=== PATIENT | female | born 1955 | race Caucasian/White ===

== ENCOUNTER 2021-03-17 10:20 | Inpatient (IN) ==
[2021-03-17] MEDS ORDERED: SODIUM CHLORIDE 0.9% 1,000 ML IV STA (10:47)
[2021-03-17 11:42] LABS: Basophils % 0.1 % (0.0-0.8); Hematocrit 45.6 VOL% (35.7-47.0); Hemoglobin 14.8 GM/DL (12.0-16.0); Immature Granulocytes % 0.6 %; Immature Granulocytes Absolute 0.08 #; Lymphocytes # 2.5 10*3/uL (1.4-4.0); Lymphocytes % 17.5 % (21.3-54.2); Mean Corpuscular HGB Conc 32.5 GM/DL (32-36); Mean Corpuscular Volume 89.6 FL (87-102); Mean Platelet Volume 10.2 FL (9.6-12.0); Monocytes % 5.4 % (1.7-12.7); Neutrophils % 76.4 % (38.7-73.9); Platelet Count 250 T/CUMM (130-400); Red Blood Count 5.09 MC/CUMM (3.8-5.5); Red Cell Distribution Width 13.3 % (9.3-17.3); White Blood Count 14.1 T/CUMM (4-12)
[2021-03-17 12:05] LABS: Bilirubin,Urine Negative (Negative); Blood, Urine Small mg/dL (Negative); Glucose,Urine (UA) 50 mg/dL (Negative); Ketones,Urine Negative (Negative); Mucus,Urine Occasional /LPF (Occasional); Nitrite,Urine Negative (Negative); Protein,Urine Negative; RBC,Urine 2 /HPF (0-4); Squamous Epithelial Cell,Urine Occasional /HPF (0-10); Urine Appearance CLEAR (Clear); Urine Color Yellow (Yellow); Urine Specific Gravity 1.016 (1.001-1.035); Urine Urobilinogen < 2.0 EU/DL (<2.0)
[2021-03-17 12:13] LABS: Albumin 3.6 G/DL (3.4-5.0); Bilirubin,Total 0.5 MG/DL (0.20-1.00); Osmolality,Calculated 288.1 MOS/KG (273-304); Potassium 4.6 MMOL/L (3.5-5.1); Thyroid Stimulating Hormone 0.265 uIU/ml (0.358-3.74); Total Protein 7.4 G/DL (6.4-8.2)
[2021-03-17] MEDS ORDERED: ONDANSETRON 4 MG/2 ML VIAL IV PRN (13:30)
[2021-03-17] MEDS ORDERED: hydrALAZINE 20 MG/1 ML VIAL IV PRN (13:30)
[2021-03-17] MEDS ORDERED: DEXTROSE 10% 250 ML BAG IV PRN (13:30)
[2021-03-17] MEDS ORDERED: GLUCAGON 1 MG VIAL IM PRN (13:30)
[2021-03-17] MEDS ORDERED: LABETALOL 20 MG/4 ML SYRINGE IV PRN (13:48)
[2021-03-17] MEDS ORDERED: ALBUTEROL/IPRATROPIUM 3 ML NEB RESP TX PRN (14:13)
[2021-03-17 14:18] LABS: Risk Ratio 7.09; VLDL Cholesterol 71.8 MG/DL
[2021-03-17] MEDS: ENOXAPARIN 40 MG/0.4 ML SYRINGE SUBCUT SCH (17:46)
[2021-03-17] MEDS: INSULIN LISPRO 100 UNIT/ML SUBCUT SCH (20:03)
[2021-03-18 05:30] LABS: Basophils % 0.2 % (0.0-0.8); Eosinophils % 0.1 % (0.00-10.9); Hematocrit 45.8 VOL% (35.7-47.0); Hemoglobin 14.8 GM/DL (12.0-16.0); Immature Granulocytes % 0.3 %; Immature Granulocytes Absolute 0.04 #; Lymphocytes # 3.3 10*3/uL (1.4-4.0); Mean Corpuscular HGB Conc 32.3 GM/DL (32-36); Mean Corpuscular Volume 89.6 FL (87-102); Mean Platelet Volume 10.3 FL (9.6-12.0); Monocytes % 6.3 % (1.7-12.7); Neutrophils % 66.1 % (38.7-73.9); Platelet Count 258 T/CUMM (130-400); Red Blood Count 5.11 MC/CUMM (3.8-5.5); Red Cell Distribution Width 13.4 % (9.3-17.3); White Blood Count 12.1 T/CUMM (4-12)
[2021-03-18 05:49] LABS: Calcium 9.3 MG/DL (8.5-10.1); Osmolality,Calculated 284.3 MOS/KG (273-304)
[2021-03-18] MEDS: ATORVASTATIN 80 MG TABLET PO SCH ×2 (06:31→20:29)
[2021-03-18] MEDS: INSULIN LISPRO 100 UNIT/ML SUBCUT SCH ×4 (06:33→17:55)
[2021-03-18 10:33] LABS: Free T4 (Free Thyroxine) 1.26 NG/DL (0.76-1.46)
[2021-03-18] MEDS ORDERED: POTASSIUM CHLORIDE 20 MEQ TABLET PO ONE (10:59)
[2021-03-18] MEDS: ASPIRIN CHEW 81 MG TABLET PO SCH (12:41)
[2021-03-18] MEDS: PANTOPRAZOLE 40 MG VIAL IV SCH (12:50)
[2021-03-18] MEDS: cefTRIAXone 1,000 MG in SODIUM CHLORIDE 0.9% 100 ML IV SCH (13:10)
[2021-03-18 13:27] LABS: Folate > 24.00 NG/ML (5.38-24.0); Vitamin B12 527 PG/ML (211-911)
[2021-03-18] MEDS: SODIUM CHLOR 0.9% KCL 20 MEQ 20 MEQ/1,000 ML BAG IV SCH (14:20)
[2021-03-18] MEDS: ENOXAPARIN 40 MG/0.4 ML SYRINGE SUBCUT SCH (14:25)
[2021-03-18] MEDS: GABAPENTIN 100 MG CAPSULE PO SCH (20:29)
[2021-03-19] MEDS: INSULIN LISPRO 100 UNIT/ML SUBCUT SCH ×4 (00:26→18:39)
[2021-03-19] MEDS: SODIUM CHLOR 0.9% KCL 20 MEQ 20 MEQ/1,000 ML BAG IV SCH ×2 (06:27→11:52)
[2021-03-19 06:50] LABS: Basophils % 0.2 % (0.0-0.8); Eosinophils % 0.1 % (0.00-10.9); Hematocrit 44.6 VOL% (35.7-47.0); Hemoglobin 14.3 GM/DL (12.0-16.0); Immature Granulocytes % 0.5 %; Immature Granulocytes Absolute 0.06 #; Lymphocytes # 3.2 10*3/uL (1.4-4.0); Lymphocytes % 27.5 % (21.3-54.2); Mean Corpuscular HGB Conc 32.1 GM/DL (32-36); Mean Corpuscular Volume 90.7 FL (87-102); Mean Platelet Volume 10.2 FL (9.6-12.0); Monocytes % 6.9 % (1.7-12.7); Neutrophils % 64.8 % (38.7-73.9); Platelet Count 250 T/CUMM (130-400); Red Blood Count 4.92 MC/CUMM (3.8-5.5); Red Cell Distribution Width 13.3 % (9.3-17.3); White Blood Count 11.6 T/CUMM (4-12)
[2021-03-19 07:04] LABS: Calcium 8.8 MG/DL (8.5-10.1); Osmolality,Calculated 288.1 MOS/KG (273-304); Potassium 3.4 MMOL/L (3.5-5.1)
[2021-03-19] MEDS ORDERED: POTASSIUM CHLORIDE 20 MEQ TABLET PO ONE (07:31)
[2021-03-19] MEDS: GABAPENTIN 100 MG CAPSULE PO SCH ×2 (08:35→20:56)
[2021-03-19] MEDS: PANTOPRAZOLE 40 MG VIAL IV SCH (08:35)
[2021-03-19] MEDS: ASPIRIN CHEW 81 MG TABLET PO SCH (08:35)
[2021-03-19] MEDS: VALSARTAN 160 MG TABLET PO SCH (08:35)
[2021-03-19] MEDS: cefTRIAXone 1,000 MG in SODIUM CHLORIDE 0.9% 100 ML IV SCH (12:24)
[2021-03-19] MEDS: ENOXAPARIN 40 MG/0.4 ML SYRINGE SUBCUT SCH ×2 (12:26→14:14)
[2021-03-19] MEDS ORDERED: ALBUTEROL 2.5 MG/3 ML NEB RESP TX PRN (17:29)
[2021-03-19] MEDS: ATORVASTATIN 80 MG TABLET PO SCH (20:56)
[2021-03-20] MEDS: INSULIN LISPRO 100 UNIT/ML SUBCUT SCH ×3 (00:14→15:47)
[2021-03-20 04:45] LABS: Basophils % 0.2 % (0.0-0.8); Eosinophils % 0.2 % (0.00-10.9); Immature Granulocytes % 0.6 %; Immature Granulocytes Absolute 0.07 #; Lymphocytes # 3.5 10*3/uL (1.4-4.0); Lymphocytes % 27.7 % (21.3-54.2); Mean Corpuscular HGB Conc 32.6 GM/DL (32-36); Mean Corpuscular Volume 90.9 FL (87-102); Mean Platelet Volume 10.1 FL (9.6-12.0); Monocytes % 6.9 % (1.7-12.7); Neutrophils % 64.4 % (38.7-73.9); Platelet Count 220 T/CUMM (130-400); Red Blood Count 4.73 MC/CUMM (3.8-5.5); Red Cell Distribution Width 13.1 % (9.3-17.3); White Blood Count 12.5 T/CUMM (4-12)
[2021-03-20 05:01] LABS: Calcium 8.8 MG/DL (8.5-10.1); Osmolality,Calculated 286.3 MOS/KG (273-304); Potassium 4.3 MMOL/L (3.5-5.1)
[2021-03-20 08:15] VITALS: BP 148/81
[2021-03-20] MEDS: ASPIRIN CHEW 81 MG TABLET PO SCH (08:37)
[2021-03-20] MEDS: GABAPENTIN 100 MG CAPSULE PO SCH (08:37)
[2021-03-20] MEDS: VALSARTAN 160 MG TABLET PO SCH (08:37)
[2021-03-20] MEDS: PANTOPRAZOLE 40 MG VIAL IV SCH (08:37)
[2021-03-20] MEDS: cefTRIAXone 1,000 MG in SODIUM CHLORIDE 0.9% 100 ML IV SCH (15:47)
[2021-03-20] MEDS: ENOXAPARIN 40 MG/0.4 ML SYRINGE SUBCUT SCH (15:47)
== END 2021-03-20 14:37 | disposition home or self-care (01) | DRG 72 ==
LOC: EDUNIT# → EDBD → N.ED 10:20 → SUATTDRO 13:30 → N.EDINP 13:30 → N.3E 03-18 15:44
PROVIDERS: ADMIT Internal Medicine; ATTEND Internal Medicine